=== PATIENT | female | born 1990 | race African-American/Black ===

== ENCOUNTER 2018-10-22 10:16 | Emergency (ER) | payer SELFPAY ==
[~2018-10-22] VITALS: Ht 180.3 cm; Wt 156.9 kg
[2018-10-22 10:32] VITALS: BP 133/80; Ht 180.3 cm; Wt 156.9 kg
== END 2018-10-22 12:10 | disposition home or self-care (01) ==
LOC: ED 10:16
DX: J45.901 Unspecified asthma with (acute) exacerbation (principal); J06.9 Acute upper respiratory infection, unspecified; F17.210 Nicotine dependence, cigarettes, uncomplicated
CPT/HCPCS: J1100; J7620